=== PATIENT | male | born 1955 | race Caucasian/White ===

== ENCOUNTER → 2017-04-02 | Outpatient (CLI) | payer OTHER ==
[~2017-04-02] MED LIST: AMARYL4 MG PO; APAP500 PO; APAP650 PO; BYSTOLIC 5 MG5 M1 PO; CRESTOR10 MG PO; INVOKANA300 MG PO; LANTIS SQ; METFORMIN HCL500 MG PO; TUMERSAID TABL1 EACH PO; UNICOMPLEX M TA1 TA1 PO; VICTOZA0.6 MG/0.1 SUBQ; WELCHOL 625 MG625 M1 PO
== END ==
LOC: CAT 11:10
DX: M47.22 Other spondylosis with radiculopathy, cervical region (principal)

== ENCOUNTER → 2017-08-06 | Outpatient (CLI) | payer OTHER | LOC: RAD 09:32 | DX: M54.12 Radiculopathy, cervical region (principal); M47.892 Other spondylosis, cervical region; M50.21 Other cervical disc displacement, high cervical region; M47.896 Other spondylosis, lumbar region; G95.89 Other specified diseases of spinal cord; M62.838 Other muscle spasm; R29.898 Other symptoms and signs involving the musculoskeletal system ==

== ENCOUNTER 2018-12-23 05:34 | Outpatient (CLI) | payer OTHER ==
[~2018-12-23] VITALS: Ht 180.3 cm; Wt 104.3 kg
[~2018-12-23 05:34] MED LIST changes: +BASAGLAR K100 UNIT/1 SUBQ; +CO Q-10100 MG PO; +OZEMPIC1 MG/0.75 SUBQ; +VASCEPA1 GM PO
[2018-12-23 08:55] VITALS: BP 123/80
== END 2018-12-23 11:20 | disposition home or self-care (01) ==
LOC: MRI 05:34 → TBA 05:34 → MRI 09:59
DX: M47.26 Other spondylosis with radiculopathy, lumbar region (principal); M43.16 Spondylolisthesis, lumbar region; M48.04 Spinal stenosis, thoracic region; N28.1 Cyst of kidney, acquired; M41.86 Other forms of scoliosis, lumbar region; M25.78 Osteophyte, vertebrae; M51.84 Other intervertebral disc disorders, thoracic region; M48.07 Spinal stenosis, lumbosacral region; M47.817 Spondylosis without myelopathy or radiculopathy, lumbosacral region; Z88.8 Allergy status to other drugs, medicaments and biological substances
CPT/HCPCS: 50010; 62110; 62900; 70005